=== PATIENT | female | born 1955 | race African-American/Black ===

== ENCOUNTER 2021-08-22 14:52 | Outpatient (CLI) | payer OTHER | END 2021-08-22 14:53 | disposition home or self-care (01) | LOC: CSHMAMMO 14:52 | PROVIDERS: ATTEND Family Medicine | DX: Z12.31 Encounter for screening mammogram for malignant neoplasm of breast (principal); Z80.3 Family history of malignant neoplasm of breast | CPT/HCPCS: 77063; 77067 ==

== ENCOUNTER 2022-05-26 15:11 | Outpatient (CLI) | payer OTHER | END 2022-05-26 15:12 | disposition home or self-care (01) | LOC: CSHMAMMO 15:11 | PROVIDERS: ATTEND Family Medicine | DX: M85.851 Other specified disorders of bone density and structure, right thigh (principal); M85.852 Other specified disorders of bone density and structure, left thigh; M81.0 Age-related osteoporosis without current pathological fracture | CPT/HCPCS: 77080 ==

== ENCOUNTER 2023-10-04 15:15 | Outpatient (CLI) | payer OTHER | END 2023-10-04 15:16 | disposition home or self-care (01) | LOC: CSHMAMMO 15:15 | PROVIDERS: ATTEND Family Medicine | DX: Z12.31 Encounter for screening mammogram for malignant neoplasm of breast (principal); Z80.3 Family history of malignant neoplasm of breast | CPT/HCPCS: 77063; 77067 ==

== ENCOUNTER 2024-10-18 14:00 | Outpatient (CLI) | payer MEDICARE | END 2024-10-18 14:01 | disposition home or self-care (01) | LOC: CSHMAMMO 14:00 | PROVIDERS: ATTEND Family Medicine | DX: Z12.31 Encounter for screening mammogram for malignant neoplasm of breast (principal); Z80.3 Family history of malignant neoplasm of breast | CPT/HCPCS: 77063; 77067 ==